=== PATIENT | male | born 1955 | race Caucasian/White ===

== ENCOUNTER → 2018-10-24 | Outpatient (CLI) | payer OTHER | LOC: CIMAGING 12:29 | PROVIDERS: ATTEND Family Medicine | DX: M25.562 Pain in left knee (principal) | CPT/HCPCS: 73562-PO ==

== ENCOUNTER → 2018-11-21 | Outpatient (CLI) | payer OTHER | LOC: EMCIMAGING 08:16 | PROVIDERS: ATTEND Family Medicine | DX: M23.222 Derangement of posterior horn of medial meniscus due to old tear or injury, left knee (principal); M85.862 Other specified disorders of bone density and structure, left lower leg; M94.8X6 Other specified disorders of cartilage, lower leg | CPT/HCPCS: 7372PN ==